=== PATIENT | male | born 1955 | race Two or more races ===

== ENCOUNTER → 2024-05-27 | Outpatient (CLI) | payer OTHER ==
[2024-05-27 09:37] LABS: Urine Bacteria None Seen /hpf (None Seen)
[2024-05-27 10:15] LABS: Urine Blood Negative /uL (Negative); Urine Clarity Clear (Clear); Urine Color Light-Yellow (Yellow); Urine Protein, UAD Negative (Negative); Urine Specific Gravity 1.018 (1.001-1.035); Urine Squamous Epithelial Cell None Seen /hpf (<5); Urine Urobilinogen Normal (Negative); Urine WBC < 1 /HPF (0-3); Urine pH 6.5 (5.0-9.0)
[2024-05-27 10:22] LABS: Anion Gap 8 (5-15); Carbon Dioxide 28 mmol/L (20-31); Chloride 103 mmol/L (98-107); Potassium 4.2 mmol/L (3.5-5.1); Sodium 139 mmol/L (136-145)
[2024-05-27 10:27] LABS: Glucose 104 mg/dL (74-106)
[2024-05-27 10:28] LABS: BUN/Creatinine Ratio 12.2 (10.0-20.0); LDL Cholesterol 96 mg/dL (< 100); Triglycerides 79 mg/dL (< 150)
[2024-05-27 10:30] LABS: Cholesterol 164 mg/dL (< 200); HDL Cholesterol 58 mg/dL (40-59)
[2024-05-27 10:40] LABS: Blood Urea Nitrogen 9 mg/dL (9-23)
[2024-05-27 10:41] LABS: Barbiturate Scree,Urine Neg (NEGATIVE); Calcium 10.4 mg/dL (8.7-10.4); Opiate Scree,Urine Pos (NEGATIVE); Phencyclidine Screen, Urine Neg (NEGATIVE)
[2024-05-27 10:42] LABS: Amphetamine Screen, Urine Neg (NEGATIVE); Benzodiazephine Screen, Urine Neg (NEGATIVE); Cannabinoid Screen, Urine Neg (NEGATIVE); Cocaine Screen, Urine Neg (NEGATIVE)
== END | disposition home or self-care (01) ==
LOC: LAB 08:28
PROVIDERS: ATTEND Internal Medicine
DX: I10 Essential (primary) hypertension (principal); E78.5 Hyperlipidemia, unspecified; F11.10 Opioid abuse, uncomplicated
CPT/HCPCS: 36415; 80048; 80061; 80307; 81001; 84153

== ENCOUNTER 2024-09-27 14:00 | Outpatient (CLI) | payer OTHER | END 2024-09-27 17:00 | disposition home or self-care (01) | LOC: LAB 14:00 | PROVIDERS: ATTEND Internal Medicine | DX: Z12.11 Encounter for screening for malignant neoplasm of colon (principal) | CPT/HCPCS: 82270 ==

== ENCOUNTER 2025-01-21 08:34 | Day surgery (SDC) | payer OTHER ==
[2025-01-15 10:27] LABS: Hematocrit 44.5 % (41.0-53.0); Hemoglobin 15.0 g/dL (13.5-17.5); Mean Corpuscular Hemoglobin 31.7 pg (28.0-32.0); Mean Corpuscular Volume 94.2 fL (80.0-100.0); Nucleated Red Blood Cells % 0.1 %
[2025-01-15 10:40] LABS: Urine Protein, UAD Negative (Negative)
[2025-01-15 10:46] LABS: Alanine Aminotransferase 28 U/L (7-40); Albumin 4.7 g/dL (3.2-4.8); Anion Gap 8 (5-15); BUN/Creatinine Ratio 9.6 (10.0-20.0); Calcium 9.9 mg/dL (8.7-10.4); Carbon Dioxide 27 mmol/L (20-31); Chloride 106 mmol/L (98-107); Glucose 98 mg/dL (74-106); Potassium 3.8 mmol/L (3.5-5.1); Sodium 141 mmol/L (136-145); Total Protein 7.6 g/dL (5.7-8.2)
[2025-01-15 10:47] LABS: Bilirubin, Total 0.6 mg/dL (0.2-1.0)
[2025-01-15 10:50] LABS: Alkaline Phosphatase 145 U/L (46-116); Blood Urea Nitrogen 7 mg/dL (9-23)
[2025-01-15 10:54] LABS: INR 1.08 (0.9-1.15); Partial Thromboplastin Time 29.5 SEC (24.5-34.5); Prothrombin Time 11.4 sec (9.3-11.8)
[~2025-01-21] VITALS: Ht 165.1 cm; Wt 77.1 kg
[~2025-01-21 08:34] MED LIST: AML5T PO; ASPI81CH59 PO; IBU600T PO; LISI20TA56 PO
[2025-01-21 08:58] VITALS: TEMP 97.8
[2025-01-21] MEDS ORDERED: ceFAZolin 2 GM/D5W50ml 50 ML IV ONE (08:59)
[2025-01-21] MEDS ORDERED: SODIUM CHLORIDE LOCK 10 ML ONE (10:05)
[2025-01-21] MEDS ORDERED: PROPOFOL 10 MG/ML 20 ML IV ONE (10:05)
[2025-01-21] MEDS ORDERED: LIDOCAINE 1% INJ PF 5ML AMP ONE (10:05)
[2025-01-21] MEDS ORDERED: fentaNYL CITRATE 100 MCG/2 ML VL ONE (10:05)
[2025-01-21] MEDS ORDERED: MIDAZOLAM HCL 2MG/2ML 2ml VIAL (1mg/ml) ONE (10:05)
[2025-01-21] MEDS ORDERED: ONDANSETRON HCL 4 MG/2 ML VIAL ONE (10:05)
[2025-01-21] MEDS ORDERED: MORPHINE SULFATE INJ 2 MG/ml SYRG IV PRN (10:15)
[2025-01-21] MEDS ORDERED: MORPHINE SULFATE 4 MG/ML SYR/VIAL IV PRN (10:15)
[2025-01-21] MEDS ORDERED: KETOROLAC TROMETH 30 MG/ML 1ML VIAL IV ONE (10:15)
[2025-01-21] MEDS ORDERED: HYDROmorphone HCL 2 MG/ML VL/or syr IV PRN ×2 (10:15)
[2025-01-21] MEDS ORDERED: METOCLOPRAMIDE HCL 5MG/ml INJ 2ml VIAL IV PRN (10:15)
[2025-01-21] MEDS: BUPIVACAINE 0.5% P/F INJ 10 ML VIAL ONE (10:59)
[2025-01-21 11:12] VITALS: PULSE 72; RESP 15; O2SAT 93
[2025-01-21 11:27] VITALS: BP 148/49; PULSE 81; RESP 14; O2SAT 98
--- NOTE | 2025-01-21 11:34 | DVHOP2 ---
Operative Report - 2 Report Details Date: 01/21/25 Preop Diagnosis: Right ring finger trigger finger Postop Diagnosis: Right ring finger trigger finger Surgeon: Deisy Houser MD Environmental Health Specialist: None Anesthesiologist: Dr Rg Anesthesia: Local Implant: None Consent: The patient was informed of the risks and benefits of the procedure. These include but are not limited to complications of anesthesia, postoperative infection, incomplete relief of symptoms, recurrence of symptoms, damage to blood vessels, nerves and tendons, deep venous thrombosis, pulmonary embolism and possible need for repeat surgery in the future. Complications: None Estimated Blood Loss: Less than 5 mL Indications for Surgery: Patient is a 69-year-old male who presented to the clinic with a history of triggering of the right ring finger. Nonoperative and operative management options were discussed. Surgery in the form of trigger finger release was discussed as the patient had failed thorough nonoperative management. Benefits, risks and treatment alternatives were discussed. Specific complications of the surgery such as neurovascular injury, infection, arthrofibrosis, loss of limb or life were discussed. The patient decided to proceed with the surgical option. Name of Procedure Performed Right ring finger trigger release Procedure Details Procedure Details: The patient was identified in the preoperative holding area and the surgical site was marked. The consent was verified. Any last-minute questions or concerns were addressed. The patient was brought into the operating room and placed supine on the operative table. The extremity was prepped and draped in the usual sterile manner. Intravenous antibiotics were given. A timeout was called to confirm the identity of the patient nature of surgery, the site of surgery, the availability of implants and x-rays and allergies to medications. The tourniquet was raised to 250 mm. A small incision was made over the crease over the A1 sathish. The skin and the subcutaneous tissue were dissected. The A1 sathish was identified. Dissection was continued proximally and distally to ensure that the neurovascular bundle is out of the way. Appropriate retractors were placed. An incision was made with a Metzenbaum scissors over the A1 sathish. Next, a Metzenbaum scissors was inserted to complete the release proximally as well as distally. Care was taken to ensure that the scissors are only on the sathish Excellent release was noted. No bowstringing was noted. Irrigation was given after release of tourniquet. Skin incision was closed with 4-0 nylon. Sterile dressing was applied. The patient was taken to the recovery. The patient had normal sensation in the distal fingers. The patient was able to move her fingers as tolerated. The patient was comfortable and then discharged home. Condition Good Disposition Home DEISY HOUSER MD Jan 21, 2025 11:34
== END 2025-01-21 12:00 | disposition home or self-care (01) ==
LOC: SUR 08:34
PROVIDERS: ATTEND Orthopaedic Surgery Sports Medicine
DX: M65.341 Trigger finger, right ring finger (principal); I10 Essential (primary) hypertension; Z98.890 Other specified postprocedural states; Z98.41 Cataract extraction status, right eye; Z98.42 Cataract extraction status, left eye; Z79.899 Other long term (current) drug therapy
CPT/HCPCS: 26055; 36415; 80053; 81001; 85025; 85610; 85730; J0690; J2250; J2405; J2704; J3010; J3490